=== PATIENT | female | born 1965 | race Caucasian/White ===

== ENCOUNTER → 2023-11-10 11:57 | Outpatient (REF) | payer OTHER, SELFPAY | LOC: MRI 3T 11:57 | PROVIDERS: ATTENDING PHYSICIAN Specialist; FAMILY PHYSICIAN Family Medicine | DX: M25.561 Pain in right knee (principal) | CPT/HCPCS: 73721 ==

== ENCOUNTER → 2023-12-02 15:42 | Outpatient (REF) | payer OTHER, SELFPAY | LOC: RCS 15:42 | PROVIDERS: ATTENDING PHYSICIAN Specialist; FAMILY PHYSICIAN Family Medicine | DX: Z01.818 Encounter for other preprocedural examination (principal) | CPT/HCPCS: 93005 ==

== ENCOUNTER → 2025-01-14 12:20 | Outpatient (REF) | payer OTHER, SELFPAY | LOC: WDC 12:20 | PROVIDERS: ATTENDING PHYSICIAN Family Medicine | DX: Z12.31 Encounter for screening mammogram for malignant neoplasm of breast (principal) | CPT/HCPCS: 72110; 73502 ==